=== PATIENT | female | born 1955 | race Caucasian/White ===

== ENCOUNTER → 2017-09-24 | Outpatient (CLI) | payer OTHER ==
[2015-08-18 10:04] VITALS: BP 161/78
[~2017-09-24] MED LIST: ZESTRIL 20MG TA20 MG PO
== END ==
LOC: MAMMO 09:48
DX: Z12.31 Encounter for screening mammogram for malignant neoplasm of breast (principal); Z98.890 Other specified postprocedural states

== ENCOUNTER → 2019-05-12 | Outpatient (CLI) | payer OTHER ==
[2015-08-18 10:04] VITALS: BP 161/78
== END ==
LOC: MAMMO 14:20
DX: Z12.31 Encounter for screening mammogram for malignant neoplasm of breast (principal)

== ENCOUNTER → 2020-12-15 | Day surgery (SDC) | payer OTHER | LOC: MSO 07:11 | DX: Z12.11 Encounter for screening for malignant neoplasm of colon (principal); D12.5 Benign neoplasm of sigmoid colon; D12.2 Benign neoplasm of ascending colon; I10 Essential (primary) hypertension; F41.9 Anxiety disorder, unspecified; F17.210 Nicotine dependence, cigarettes, uncomplicated; Z79.899 Other long term (current) drug therapy | CPT/HCPCS: 00811; J2704; J7120 ==

== ENCOUNTER → 2024-02-19 | Outpatient (CLI) | payer OTHER | LOC: MAMMO 10:24 | DX: Z12.31 Encounter for screening mammogram for malignant neoplasm of breast (principal) ==